=== PATIENT | female | born 2000 ===

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

== ENCOUNTER → 2021-04-12 | Outpatient (CLI) | payer OTHER | END | disposition home or self-care (01) | LOC: PRENATAL 09:52 | PROVIDERS: ATTEND Obstetrics & Gynecology Maternal & Fetal Medicine | DX: O35.0XX1 Maternal care for (suspected) central nervous system malformation in fetus, fetus 1 (principal); O35.3XX1 Maternal care for (suspected) damage to fetus from viral disease in mother, fetus 1; O98.512 Other viral diseases complicating pregnancy, second trimester; Z36.89 Encounter for other specified antenatal screening; Z3A.24 24 weeks gestation of pregnancy ==

== ENCOUNTER 2021-04-15 12:30 | Emergency (ER) | payer OTHER ==
[~2021-04-15] VITALS: Ht 152.4 cm; Wt 78.9 kg
[2021-04-15] MEDS ORDERED: MACROBID 100 M100 MG PO (18:09)
[2021-04-15] MEDS ORDERED: ZOFRAN8 MG PO (18:09)
== END 2021-04-15 18:21 | disposition home or self-care (01) ==
LOC: ER 12:30
DX: O21.8 Other vomiting complicating pregnancy (principal); Z34.02 Encounter for supervision of normal first pregnancy, second trimester; Z11.52 Encounter for screening for COVID-19

== ENCOUNTER 2021-06-17 09:40 | Outpatient (CLI) | payer OTHER ==
[~2021-06-17 09:40] MED LIST: MACROBID 100 M100 MG PO; ZOFRAN8 MG PO
== END 2021-06-17 10:38 | disposition home or self-care (01) ==
LOC: PRENATAL 09:40
PROVIDERS: ATTEND Obstetrics & Gynecology Maternal & Fetal Medicine
DX: O26.843 Uterine size-date discrepancy, third trimester (principal); O36.8131 Decreased fetal movements, third trimester, fetus 1; O35.0XX1 Maternal care for (suspected) central nervous system malformation in fetus, fetus 1; Z36.89 Encounter for other specified antenatal screening; Z3A.33 33 weeks gestation of pregnancy

== ENCOUNTER 2021-06-19 03:17 | Outpatient (CLI) | payer OTHER ==
[2021-06-19] MEDS ORDERED: PRENATAL CAPLE1 EAC1 (03:55)
[2021-06-19] MEDS ORDERED: PEPCID AC20 MG (03:55)
== END 2021-06-20 07:31 | disposition home or self-care (01) ==
LOC: OBS/DEL 03:17
PROVIDERS: ATTEND Student in an Organized Health Care Education/Training Program
DX: O23.43 Unspecified infection of urinary tract in pregnancy, third trimester (principal); O26.893 Other specified pregnancy related conditions, third trimester; R10.2 Pelvic and perineal pain; Z3A.34 34 weeks gestation of pregnancy

== ENCOUNTER → 2021-07-05 | Outpatient (CLI) | payer OTHER ==
[~2021-07-05] MED LIST changes: +PEPCID AC20 MG; +PHENERGAN25 MG PO; +PRENATAL CAPLE1 EAC1
== END | disposition home or self-care (01) ==
LOC: NST 00:41
PROVIDERS: ATTEND Student in an Organized Health Care Education/Training Program
DX: Z34.83 Encounter for supervision of other normal pregnancy, third trimester (principal)

== ENCOUNTER 2021-07-18 01:07 | Outpatient (CLI) | payer OTHER ==
[~2021-07-18 01:07] MED LIST changes: -PHENERGAN25 MG PO
== END 2021-07-18 13:34 | disposition home or self-care (01) ==
LOC: OBS/DEL 01:07
PROVIDERS: ATTEND Student in an Organized Health Care Education/Training Program
DX: O21.8 Other vomiting complicating pregnancy (principal); O26.893 Other specified pregnancy related conditions, third trimester; E86.0 Dehydration; Z3A.38 38 weeks gestation of pregnancy

== ENCOUNTER 2021-07-22 21:59 | Inpatient (IN) | payer OTHER ==
[~2021-07-22] VITALS: Ht 165.1 cm; Wt 80.3 kg
[2021-07-22] MEDS ORDERED: PHENERGAN25 MG PO (23:07)
== END 2021-07-25 13:57 | disposition home or self-care (01) | DRG 807 ==
LOC: OB/GYN 21:59 → LDR 21:59 → OB/GYN 07-23 05:22
PROVIDERS: ADMIT Student in an Organized Health Care Education/Training Program; ATTEND Student in an Organized Health Care Education/Training Program
PROC: 4A1HXFZ Monitoring of Products of Conception, Cardiac Rhythm, External Approach (ICD-10-PCS; 2021-07-22)
PROC: 10E0XZZ Delivery of Products of Conception, External Approach (ICD-10-PCS; principal; 2021-07-23)
PROC: 0HQ9XZZ Repair Perineum Skin, External Approach (ICD-10-PCS; 2021-07-23)
PROC: 3E033VJ Introduction of Other Hormone into Peripheral Vein, Percutaneous Approach (ICD-10-PCS; 2021-07-23)
DX: O70.0 First degree perineal laceration during delivery (principal); Z37.0 Single live birth; O90.81 Anemia of the puerperium; D64.9 Anemia, unspecified; Z3A.39 39 weeks gestation of pregnancy

== ENCOUNTER 2022-08-05 06:25 | Emergency (ER) | payer OTHER ==
[~2022-08-05] VITALS: Ht 165.1 cm; Wt 77.1 kg
[~2022-08-05 06:25] MED LIST changes: +PHENERGAN25 MG PO
[2022-08-05] MEDS ORDERED: ATIVAN0.5 M1 PO (06:42)
[2022-08-05] MEDS ORDERED: RISPERDAL0.5 MG PO (06:42)
[2022-08-05] MEDS ORDERED: ZOLOFT50 MG PO (06:42)
[2022-08-05] MEDS ORDERED: MIRALAX510 GM PO (13:27)
== END 2022-08-05 13:29 | disposition home or self-care (01) ==
LOC: ER 06:25
DX: R10.84 Generalized abdominal pain (principal); K59.00 Constipation, unspecified